=== PATIENT | male | born 1955 | race Caucasian/White ===

== ENCOUNTER → 2021-08-28 | Outpatient (CLI) | payer OTHER ==
[2021-08-29 05:06] LABS: HBSAG Negative (Negative); HEP B CORE AB, IGM Negative (Negative); HEPATITIS A AB IGM Negative (Negative); HEPATITIS C ANTIBODY <0.1 (0.0-0.9)
== END | disposition home or self-care (01) ==
LOC: LAB 01:30 → US 10:00
PROVIDERS: ATTEND Internal Medicine
DX: R74.8 Abnormal levels of other serum enzymes (principal); K76.0 Fatty (change of) liver, not elsewhere classified

== ENCOUNTER → 2021-12-06 | Outpatient (CLI) | payer OTHER ==
[2021-12-06 08:52] LABS: BUN 20 mg/dl (7-24); CHLORIDE 107 mmol/L (98-107); SODIUM 138 mmol/L (136-145)
== END | disposition home or self-care (01) ==
LOC: LAB 08:10
PROVIDERS: ATTEND Internal Medicine
DX: U07.1 COVID-19 (principal)

== ENCOUNTER → 2022-03-26 | Outpatient (CLI) | payer OTHER | END | disposition home or self-care (01) | LOC: RAD 15:01 | PROVIDERS: ATTEND Internal Medicine | DX: J98.11 Atelectasis (principal) ==

== ENCOUNTER 2024-10-08 11:59 | Emergency (ER) | payer SELFPAY ==
[~2024-10-08] VITALS: Ht 172.7 cm; Wt 116.1 kg
[2024-10-08] MEDS ORDERED: SODIUM CHLORIDE 0.9% 100 ML BAG IV ONE (12:30)
[2024-10-08] MEDS ORDERED: IOHEXOL 350 MG/ML 100 ML VIAL IV ONE ×2 (12:30→14:15)
[2024-10-08] MEDS ORDERED: METFORMIN HYD1000 MG PO (12:30)
[2024-10-08] MEDS ORDERED: LOSARTAN-HCTZ1 EAC1 PO (12:30)
[2024-10-08] MEDS ORDERED: Synthroid,Levo25 MCG PO (12:31)
[2024-10-08] MEDS ORDERED: TRUE METRIX GL1 EACH MC (12:31)
[2024-10-08] MEDS ORDERED: PIOGLITAZONE HC45 MG PO (12:31)
[2024-10-08] MEDS ORDERED: ATORVASTATIN CA20 M1 PO (12:32)
[2024-10-08] MEDS ORDERED: TRUEPLUS LANCE1 EAC1 MC (12:32)
[2024-10-08] MEDS ORDERED: FARXIGA10 M1 PO (12:32)
[2024-10-08 12:35] LABS: BASO # 0.0 10*3/uL (0.0-0.1); BASO % 0.3 % (0.0-1.0); EOS # 0.1 10*3/uL (0.0-0.4); EOS % 0.8 % (1.0-4.0); MEAN CELL VOLUME 96.2 fl (80.0-94.0); MEAN CORPUSCULAR HGB 31.2 pg (27.0-31.0); MEAN PLATELET VOLUME 11.9 fl (9.6-12.3); MONO # 0.5 10*3/uL (0.1-1.0); MONO % 5.9 % (3.0-9.0); NEUT # 5.8 10*3/uL (2.3-7.9); NEUT % 75.3 % (47.0-73.0); NUCLEATED RED BLOOD CELL 0.0 % (0.0-0.0); NUCLEATED RED BLOOD CELL 0.0 10*3/uL (0.0-0.0); PLATELET COUNT AUTOMATED 171 10*3/uL (130-400); RED CELL DISTRI WIDTH 14.0 % (0-14.5)
[2024-10-08] MEDS ORDERED: Albuterol Sulf/Ipratropium 3 ML VIAL NEB ONE (13:07)
[2024-10-08 13:43] LABS: BUN 20 mg/dl (9-23)
[2024-10-08] MEDS ORDERED: SODIUM CHLORIDE 0.9% 100 ML IV ONE (14:15)
== END 2024-10-08 15:35 | disposition home or self-care (01) ==
LOC: ED 11:59
PROVIDERS: Emergency Medicine
DX: J44.9 Chronic obstructive pulmonary disease, unspecified (principal); F17.200 Nicotine dependence, unspecified, uncomplicated; Z79.899 Other long term (current) drug therapy; Z79.84 Long term (current) use of oral hypoglycemic drugs

== ENCOUNTER → 2024-11-24 | Outpatient (CLI) | payer MEDICARE ==
[~2024-11-24] MED LIST: ATORVASTATIN CA20 M1 PO; FARXIGA10 M1 PO; LOSARTAN-HCTZ1 EAC1 PO; METFORMIN HYD1000 MG PO; PIOGLITAZONE HC45 MG PO; Synthroid,Levo25 MCG PO; TRUE METRIX GL1 EACH MC; TRUEPLUS LANCE1 EAC1 MC
== END ==
LOC: LAB 12:10
PROVIDERS: ATTEND Internal Medicine
DX: J43.9 Emphysema, unspecified (principal)